=== PATIENT | female | born 1980 | race Caucasian/White ===

== ENCOUNTER 2023-02-17 10:11 | Emergency (ER) | payer SELFPAY ==
[~2023-02-17] VITALS: Ht 157.5 cm; Wt 77.0 kg
[2023-02-17 10:17] VITALS: O2SAT 96
[2023-02-17] MEDS ORDERED: ACETAMINOPHEN 325MG TABLET PO ONE (10:45)
[2023-02-17 11:47] VITALS: BP 138/77; PULSE 77; RESP 18; TEMP 97.7
== END 2023-02-17 11:48 | disposition home or self-care (01) ==
LOC: ER 10:27
DX: S06.9XAA Unspecified intracranial injury with loss of consciousness status unknown, initial encounter (principal); S00.01XA Abrasion of scalp, initial encounter; I10 Essential (primary) hypertension; W19.XXXA Unspecified fall, initial encounter; Y93.89 Activity, other specified; Y92.89 Other specified places as the place of occurrence of the external cause; Y99.8 Other external cause status
CPT/HCPCS: 81025; 99283